=== PATIENT | female | born 1945 | race African-American/Black ===

== ENCOUNTER 2023-02-03 14:34 | Emergency (ER) | payer MEDICARE, SELFPAY ==
--- NOTE | ~2023-02-03 | US_ITS ---
EXAMINATION: US right upper quadrant DATE: 02/03/2023 18:18 INDICATION: Right upper quadrant abdominal pain. TECHNIQUE: Multiple grayscale and Doppler ultrasound images of the abdomen were obtained. COMPARISON: None FINDINGS: The visualized portions of the head, body, and tail of the pancreas are normal. The liver i s normal without focal lesion. There is normal flow in main portal vein. The gallbladder is absent. T he common duct is normal and measures 5 mm. There is mild atrophy of right kidney. IMPRESSION: 1. Mild atrophy of right kidney. Reviewed, dictated and finalized at location E.
--- NOTE | ~2023-02-03 | CT_ITS ---
EXAMINATION: CT abdomen pelvis w con DATE: 02/03/2023 18:48 INDICATION: Right upper quadrant abdominal pain. TECHNIQUE: Computed tomography (CT) of the abdomen and pelvis was performed with 100 mL Omnipaque 350 intravenous contrast. Automated exposure control and iterative reconstruction technique were employe d. The dose-length product was 695.80 mGy-cm. COMPARISON: None. FINDINGS: There is mild emphysema. There is mild atelectasis bilaterally. No pleural effusion. The he art size is normal. There are coronary artery calcifications. No pericardial effusion. The liver is n ormal. There are changes of cholecystectomy. The spleen, pancreas, and adrenal glands are normal. The re is moderate atrophy of right kidney. There is a 4 mm stone in right kidney. There is focal cortica l thinning of left kidney. There are no dilated loops of bowel. The appendix is normal. There is calc ified atherosclerosis of the aorta and many of the other arteries. There is moderate stenosis of righ t renal artery. There are no pathologically enlarged lymph nodes.. There is an umbilical hernia conta ining fat. There is no free intraperitoneal fluid. There is mild lumbar spondylosis. IMPRESSION: 1. Moderate atrophy of right kidney. 2. Moderate right renal artery stenosis. 3. Umbilical hernia containing fat. Reviewed, dictated and finalized at location E.
--- NOTE | ~2023-02-03 | XR_ITS ---
EXAMINATION: XR chest 1V portable DATE: 02/03/2023 18:22 INDICATION: Right upper quadrant abdominal pain. TECHNIQUE: A single frontal view of the chest was obtained. COMPARISON: None. FINDINGS: There is no pneumonia, pleural effusion, or pneumothorax. The heart size is normal. Surgica l clips in the right upper quadrant are likely from cholecystectomy. IMPRESSION: 1. No acute cardiopulmonary disease. Reviewed, dictated and finalized at location E.
[2023-02-03 14:44] VITALS: BP 141/50; PULSE 62; RESP 18; TEMP 36.2; O2SAT 99
[2023-02-03 15:06] LABS: Basophils Percent Auto 0.3 % (0.2-1.2); Eosinophils Absolute Auto 0.2 K/mm3 (0-0.3); Eosinophils Percent Auto 3.1 % (0-4.4); Hemoglobin 13.7 g/dL (12.0-15.0); Immature Granulocyte Absolute 0.01 K/mm3 (0.00-0.031); Immature Granulocyte Percent A 0.2 % (0-0.5); Lymphocytes Absolute Auto 1.89 K/mm3 (0.9-3.2); Lymphocytes Percent Auto 32.8 % (18.3-44.2); Mean Corpuscular HGB Conc 31.1 g/dl (32-36); Mean Corpuscular Hemoglobin 28.6 pg (26-34); Mean Corpuscular Volume 91.9 fl (80-100); Mean Platelet Volume 10.5 fl (7.4-10.4); Monocytes Absolute Auto 0.5 K/mm3 (0.1-0.6); Monocytes Percent Auto 9.4 % (2.6-8.5); Neutrophils Absolute Auto 3.1 K/mm3 (1.3-6.7); Neutrophils Percent Auto 54.2 % (45.5-73.1); Platelet Count Result 225 k/mm3 (150-375); Red Blood Count 4.79 M/mm3 (4.2-5.4); Red Cell Distribution Width 12.8 % (11.5-14.5); White Blood Count 5.8 K/mm3 (4.5-10.0)
[2023-02-03 15:19] LABS: Alanine Aminotransferase 30 U/L (6-35); Albumin Level 4.3 g/dL (3.5-5.1); Alkaline Phosphatase 64 U/L (38-126); Anion Gap 5 mmol/L (8-16); Aspartate Amino Transferase 46 U/L (14-36); Bilirubin,Total 0.5 mg/dL (0.2-1.3); Blood Urea Nitrogen 19 mg/dL (7-17); Calcium 9.2 mg/dL (8.4-10.2); Carbon Dioxide 31 mmol/L (22-30); Chloride 102 mmol/L (98-107); Estimated CRCL calculation 30 ml/min; Estimated Glomerular Filt Rate 38; Glucose 222 mg/dL (65-110); Lipase 537 U/L (23-300); Sodium 138 mmol/L (137-145)
[2023-02-03 16:54] VITALS: BP 165/61; PULSE 62; RESP 20; O2SAT 100
[2023-02-03 17:27] LABS: Add Urine Microscopic? YES; Appearance Urine Clear (Clear); Bacteria Urine None Seen /hpf; Bilirubin Urine Negative (Negative); Blood Urine Negative (Negative); Color Urine Yellow (Yellow); Glucose Urine UA 3+ mg/dL (Negative); Ketones Urine Negative (Negative); Leukocyte Esterase Ur 1+ LEU/UL (Negative); Need Manual Microscopic Reviewed; Nitrate Urine Negative (Negative); Protein Urine 1+ mg/dL (Negative); RBC Urine 0-2 /hpf (0-2); Specific Grav Ur 1.024 (1.001-1.035); Squamous Epithelial Cell Urine None seen /hpf (Few); Urobilinogen Urine 0.2 mg/dL (<2.0); pH Urine 5.5 (5.0-9.0)
--- NOTE | 2023-02-03 17:30 | ECG_ITS ---
Measurements Intervals [place] Rate: 62 P: 68 OR: 160 QRS: 40 QRSD: 89 T: 4 QT: 391 QTc: 399 Interpretive Statements SINUS RHYTHM BASELINE ARTIFACT NORMAL ECG NO PREVIOUS ECG AVAILABLE FOR COMPARISON Electronically Signed On 02-03-2023 18:40:33 CDT by Manfred Townsend M.D.
--- NOTE | 2023-02-03 17:31 | ED.ABDPAIN ---
HPI - Abdominal Pain General Chief Complaint: Abdominal Pain <Alma Fragoso PA-C - Last Filed: 02/03/23 19:50> Stated Complaint: abdominal pain <Alma Fragoso PA-C - Last Filed: 02/03/23 19:50> Time Seen by Provider: 02/03/23 16:53 <Alma Fragoso PA-C - Last Filed: 02/03/23 19:50> History of Present Illness HPI narrative: 77 y/o F with a history of CKD, hyperlipidemia, type 2 diabetes reports for evaluation for intermittent epigastric and right upper quadrant abdominal pain for the past 2 weeks. Patient states the abdominal pain occurs after she eats and resolves when she does not eat for long period of time. She states she has been constipated over the past few days. She did take some MiraLAX and was able to have a bowel movement this morning that was soft. Her last bowel movement prior to that was 4 days ago. She does states she has been very gassy. She has a history of cholecystectomy and pancreatitis from what sounds like a GLP-1 inhibitor around 5 years ago. She denies nausea, vomiting, fever, body aches or chills, chest pain or shortness of breath, melena or hematochezia, dysuria or hematuria. She was evaluated last night at [facility]'s emergency department. Unfortunately, they were unable to find a cause for her pain. She brought her CT abdomen pelvis results here which shows no acute process. <Alma Fragoso PA-C - Last Filed: 02/03/23 19:50> Related Data Home Medications: Home Medications Medication Instructions Recorded Confirmed atenolol 50 mg tablet 50 mg PO BID 11/06/22 02/02/23 cholecalciferol (vitamin D3) 125 125 mcg PO DAILY 11/06/22 02/02/23 mcg (5,000 unit) capsule lisinopril 20 mg tablet 20 mg PO DAILY 11/06/22 02/02/23 aspirin 81 mg tablet 81 mg PO DAILY 12/14/22 02/02/23 <Alma Fragoso PA-C - Last Filed: 02/03/23 19:50> Allergies/Adverse Reactions: Allergies Allergy/AdvReac Type Severity Reaction Status Date / Time No Known Allergies Allergy Verified 02/02/23 13:27 <Alma Fragoso PA-C - Last Filed: 02/03/23 19:50> Review of Systems Review of Systems: CONSTITUTIONAL: Denies fever, chills EYES: Denies visual changes, redness, or discharge. ENT: Denies rhinorrhea, congestion, sore throat, or otalgia. CARDIOVASCULAR: Denies chest pain, palpitations, or edema. RESPIRATORY: Denies cough or dyspnea. GASTROINTESTINAL: See HPI GENITOURINARY: Denies dysuria or hematuria. SKIN: Denies rash or itching. MUSCULOSKELETAL: Denies back pain, joint pain, or myalgia. NEUROLOGIC: Denies headache, numbness, dizziness, or weakness. PSYCHIATRIC: Denies anxiety or depression. <Alma Fragoso PA-C - Last Filed: 02/03/23 19:50> [facility] Family History Family History: Family History Sibling Hypertension Family history of diabetes mellitus in first degree relative Mother Cerebrovascular accident Family history of diabetes mellitus in first degree relative <Alma Fragoso PA-C - Last Filed: 02/03/23 19:50> Social History Social History: Social History Smoking packs per day: 0 Smoking cigarettes per day: 0.0 Years smoked: 0 Smoking pack-years: 0.00 Smoking status: Never smoker Second hand tobacco smoke exposure: No Alcohol intake: never Substance use: never Substance use type: does not use Lack of Transportation: No Lack of Food: Never True Current Housing: I Have Housing Concerned About Future Housing: No Difficulty Paying Gas/Electric Bills: No Difficulty Paying for Meds: No Currently Unemployed: No Education: High School Diploma/GED Difficulty w/ Childcare or Family Care: No Living arrangements: with family Spiritual care concerns: No <Alma Fragoso PA-C - Last Filed: 02/03/23 19:50> Exam Narrative: GENERAL: Well-appearing, in no acute distress.
[2023-02-03 18:04] LABS: Troponin I < 0.012 ng/mL (0.000-0.034)
[2023-02-03] MEDS: FAMOTIDINE 20 MG/2 ML VIAL IV PUSH (18:28)
[2023-02-03] MEDS: MORPHINE SULFATE (*CRX) 2 MG/ML INJ IV PUSH (18:28)
[2023-02-03] MEDS: SODIUM CHLORIDE 0.9% IV 1,000 ML 999 ML IV CONT (18:28)
[2023-02-03 20:58] VITALS: BP 170/59; PULSE 65; RESP 16; O2SAT 100
== END 2023-02-03 21:00 | disposition home or self-care (01) ==
PROVIDERS: Emergency Medicine; Emergency Provider Physician Assistant; PCP Family Medicine
DX: R10.11 Right upper quadrant pain (principal); R10.13 Epigastric pain; R74.8 Abnormal levels of other serum enzymes; R82.90 Unspecified abnormal findings in urine; N26.1 Atrophy of kidney (terminal); I70.1 Atherosclerosis of renal artery; E11.22 Type 2 diabetes mellitus with diabetic chronic kidney disease; N18.9 Chronic kidney disease, unspecified; Z90.49 Acquired absence of other specified parts of digestive tract
CPT/HCPCS: 36415; 71045; 74177; 76705; 80053; 81001; 83690; 84484; 85025; 87086; 87088; 87147; 93005; 96361; 96365; 96375; 99284; J0696; J2270; J7030; Q9967

== ENCOUNTER 2023-02-09 00:13 | Day surgery (SDC) | payer MEDICARE, SELFPAY ==
[2023-02-02 13:33] VITALS: BMI 29.6
[2023-02-09 09:16] VITALS: BP 148/50; PULSE 59; RESP 20; TEMP 35.9; O2SAT 100
--- NOTE | 2023-02-09 09:21 | PM.HPGS ---
History of Present Illness History of Present Illness Consent: Risks, benefits, and alternatives have been discussed and questions answered. Patient agrees to proceed with procedure. Chief complaint: + Cologuard Narrative: Ciera Sorto is a 77 year old female here for positive cologuard, had colonoscopy in the past more than 5 years ago Review of Systems Constitutional: Constitutional: Denies headache(s) and Denies weakness Eyes: Eyes: Denies blurry vision ENT: Reports Normal hearing present, Denies headache(s) and Denies neck pain Cardiovascular: Cardiovascular: Denies chest pain and Denies dyspnea Respiratory: Respiratory: Denies dyspnea Gastrointestinal: Gastrointestinal: Reports no additional gastrointestinal complaints Genitourinary: Genitourinary: Denies dysuria Musculoskeletal: Musculoskeletal: Denies neck pain Integumentary/Breasts: Skin/Breast: Denies dry skin Neurologic: Reports Normal hearing present, Denies headache(s) and Denies weakness Psychiatric: Psychiatric: Denies anxiety Endocrine: Endocrine: Denies change in body appearance Hematologic/Lymphatic: Hematologic/Lymphatic: Denies easy bleeding Allergic/Immunologic: Allergic/Immunologic: Denies urticaria [facility] Family History Family History Sibling Hypertension Family history of diabetes mellitus in first degree relative Mother Cerebrovascular accident Family history of diabetes mellitus in first degree relative Social History Social History Smoking packs per day: 0 Smoking cigarettes per day: 0.0 Years smoked: 0 Smoking pack-years: 0.00 Smoking status: Never smoker Second hand tobacco smoke exposure: No Alcohol intake: never Substance use: never Substance use type: does not use Lack of Transportation: No Lack of Food: Never True Current Housing: I Have Housing Concerned About Future Housing: No Difficulty Paying Gas/Electric Bills: No Difficulty Paying for Meds: No Currently Unemployed: No Education: High School Diploma/GED Difficulty w/ Childcare or Family Care: No Living arrangements: with family Spiritual care concerns: No Meds Home Medications and Allergies Home Medications Medication Instructions Recorded Confirmed Type atenolol 50 mg tablet 50 mg PO BID 11/06/22 02/02/23 History cholecalciferol (vitamin D3) 125 125 mcg PO DAILY 11/06/22 02/02/23 History mcg (5,000 unit) capsule lisinopril 20 mg tablet 20 mg PO DAILY 11/06/22 02/02/23 History blood-glucose meter #1 ea 11/24/22 02/02/23 Rx amlodipine 10 mg tablet 10 mg PO DAILY #90 tabs 11/25/22 02/02/23 Rx atorvastatin 20 mg tablet 20 mg PO DAILY #90 tabs 11/25/22 02/02/23 Rx blood sugar diagnostic (OneTouch #100 ea 11/25/22 02/02/23 Rx Ultra Test strips) glipizide 10 mg tablet 10 mg PO DAILY #90 tabs 11/25/22 02/02/23 Rx insulin glargine 100 unit/mL (3 40 unit (0.4 mL) subcut DAILY #15 11/25/22 02/02/23 Rx mL) subcutaneous pen (Lantus mL Solostar U-100 Insulin) lancets (Soft Touch Lancets) #200 ea 11/25/22 02/02/23 Rx aspirin 81 mg tablet 81 mg PO DAILY 12/14/22 02/02/23 History tirzepatide 2.5 mg/0.5 mL 2.5 mg (0.5 mL) subcut WEEKLY 4 01/20/23 02/02/23 Rx subcutaneous pen injector weeks #2 mL (Jarret) semaglutide 0.25 mg or 0.5 mg (2 0.25 mg (0.368 mL) subcut WEEKLY 01/21/23 02/02/23 Rx mg/3 mL) subcutaneous pen injector #3 mL (Ozempmeli) cephalexin 500 mg capsule 500 mg PO Q8H 7 days #21 caps 02/03/23 Rx famotidine 20 mg tablet 20 mg PO DAILY #20 tabs 02/03/23 Rx Allergies Allergy/AdvReac Type Severity Reaction Status Date / Time No Known Allergies Allergy Verified 02/02/23 13:27 Vital Signs Vital Signs - 24 hr 02/09/23 09:16 Temperature 96.6 F L Pulse Rate 59 L Respiratory Rate 20 Blood Pressure 148/50 H Pulse Oximetry 100 Oxygen Delivery Room Air Exam
--- NOTE | 2023-02-09 09:24 | WPDANESEPPF ---
Anes - Initial Pre Proc Eval Procedure: Operation Date: 02/09/23 10:30 Proposed Procedures p Colonoscopy - Ulises Beltran MD Date/Time: 02/09/23 09:24 Surgeon: Ulises Beltran MD Pre Op Diagnosis: + Cologuard Patient Data Age: 77 Gender: F Height: 1.68 m Weight: 79.8 kg Last Vital Signs Temp 96.6 F L 02/09/23 09:16 Pulse 59 L 02/09/23 09:16 Resp 20 02/09/23 09:16 BP 148/50 H 02/09/23 09:16 Pulse Ox 100 02/09/23 09:16 O2 Del Method Room Air 02/09/23 09:16 Allergies Allergy/AdvReac Type Severity Reaction Status Date / Time No Known Allergies Allergy Verified 02/02/23 13:27 Home Medications Medication Instructions Recorded Confirmed Type atenolol 50 mg tablet 50 mg PO BID 11/06/22 02/02/23 History cholecalciferol (vitamin D3) 125 125 mcg PO DAILY 11/06/22 02/02/23 History mcg (5,000 unit) capsule lisinopril 20 mg tablet 20 mg PO DAILY 11/06/22 02/02/23 History blood-glucose meter #1 ea 11/24/22 02/02/23 Rx amlodipine 10 mg tablet 10 mg PO DAILY #90 tabs 11/25/22 02/02/23 Rx atorvastatin 20 mg tablet 20 mg PO DAILY #90 tabs 11/25/22 02/02/23 Rx blood sugar diagnostic (OneTouch #100 ea 11/25/22 02/02/23 Rx Ultra Test strips) glipizide 10 mg tablet 10 mg PO DAILY #90 tabs 11/25/22 02/02/23 Rx insulin glargine 100 unit/mL (3 40 unit (0.4 mL) subcut DAILY #15 11/25/22 02/02/23 Rx mL) subcutaneous pen (Lantus mL Solostar U-100 Insulin) lancets (Soft Touch Lancets) #200 ea 11/25/22 02/02/23 Rx aspirin 81 mg tablet 81 mg PO DAILY 12/14/22 02/02/23 History tirzepatide 2.5 mg/0.5 mL 2.5 mg (0.5 mL) subcut WEEKLY 4 01/20/23 02/02/23 Rx subcutaneous pen injector weeks #2 mL (Mounjaro) semaglutide 0.25 mg or 0.5 mg (2 0.25 mg (0.368 mL) subcut WEEKLY 01/21/23 02/02/23 Rx mg/3 mL) subcutaneous pen injector #3 mL (Ozempic) cephalexin 500 mg capsule 500 mg PO Q8H 7 days #21 caps 02/03/23 Rx famotidine 20 mg tablet 20 mg PO DAILY #20 tabs 02/03/23 Rx Patient hx anesthesia problems: none Family hx anesthesia problems: none Results Review: All pre-operative results and documents have been reviewed as part of the pre-operative evaluation. [facility] Family History Family History Sibling Hypertension Family history of diabetes mellitus in first degree relative Mother Cerebrovascular accident Family history of diabetes mellitus in first degree relative Social History Social History Smoking packs per day: 0 Smoking cigarettes per day: 0.0 Years smoked: 0 Smoking pack-years: 0.00 Smoking status: Never smoker Second hand tobacco smoke exposure: No Alcohol intake: never Substance use: never Substance use type: does not use Lack of Transportation: No Lack of Food: Never True Current Housing: I Have Housing Concerned About Future Housing: No Difficulty Paying Gas/Electric Bills: No Difficulty Paying for Meds: No Currently Unemployed: No Education: High School Diploma/GED Difficulty w/ Childcare or Family Care: No Living arrangements: with family Spiritual care concerns: No Anes - Eval Final PreProcedure Day of Procedure 02/09/23 09:24 Patient weight: normal Heart: regular rate and rhythm Lungs: clear to auscultation Airway: Mallampati scale class II Neurological: alert and oriented Last oral intake: >/= 8 hours ASA classification: III Emergent: no Anesthetic plan: proceed Anesthesia type and monitoring: general GIVS and standard monitoring Results Review: All pre-operative results and documents have been reviewed as part of the pre-operative evaluation. Informed Consent: The patient's anesthetic plan and its attendant risks and benefits were discussed with the patient/family/POA. Questions were solicited and answers provided to the satisfaction of the patient/family/POA.
[2023-02-09] MEDS: LACTATED RINGERS 1,000 ML 150 ML IV CONT (09:30)
[2023-02-09 09:36] LABS: Glucose Point of Care 180 mg/dl (65-105)
[2023-02-09 09:58] VITALS: BP 135/54; PULSE 56; RESP 18; O2SAT 100
[2023-02-09 10:08] VITALS: BP 138/68; PULSE 57; RESP 21; O2SAT 100
[2023-02-09 10:18] VITALS: BP 139/62; PULSE 54; RESP 22; O2SAT 100
[2023-02-09 10:18] LABS: Glucose Point of Care 168 mg/dl (65-105)
== END 2023-02-09 10:28 | disposition home or self-care (01) ==
PROVIDERS: PCP Family Medicine; Visit Provider Internal Medicine Gastroenterology
PROC: 0DJD8ZZ Inspection of Lower Intestinal Tract, Via Natural or Artificial Opening Endoscopic (ICD-10-PCS; CPT 45378; principal; 2023-02-09 10:30)
DX: R19.5 Other fecal abnormalities (principal); D12.4 Benign neoplasm of descending colon; D12.5 Benign neoplasm of sigmoid colon; D12.8 Benign neoplasm of rectum; K63.5 Polyp of colon; K64.8 Other hemorrhoids; Z79.84 Long term (current) use of oral hypoglycemic drugs; Z79.4 Long term (current) use of insulin; Z79.82 Long term (current) use of aspirin; Z79.85 Long-term (current) use of injectable non-insulin antidiabetic drugs
CPT/HCPCS: 45385; 82948; 88305; J2704; J7120

== ENCOUNTER 2023-03-15 10:55 | Outpatient (CLI) | payer MEDICARE, SELFPAY ==
--- NOTE | ~2023-03-15 | US_ITS ---
US renal BI 03/15/2023 11:32 Procedure: Realtime transabdominal ultrasound of the kidneys and bladder. Indication: Chronic kidney disease. Comparison: No prior studies for comparison. Findings: Renal echotexture is normal bilaterally without hydronephrosis, contour deforming mass or r enal calculus. The right kidney measures 7.4 cm and left kidney measures 10.7 cm. Bladder within nor mal limits. Impression: 1: Right renal atrophy. Reviewed, dictated and finalized at location B. [employer] Impression: 1: Right renal atrophy.
== END 2023-03-15 10:56 | disposition home or self-care (01) ==
PROVIDERS: PCP Family Medicine; Visit Provider Internal Medicine Nephrology
DX: N39.0 Urinary tract infection, site not specified (principal); N18.32 Chronic kidney disease, stage 3b; N26.1 Atrophy of kidney (terminal)
CPT/HCPCS: 76775

== ENCOUNTER 2023-11-11 12:00 | Outpatient (CLI) | payer MEDICARE, SELFPAY ==
[2023-11-11 12:54] LABS: Strep Group A RT-PCR NOT DETECTED (Negative)
[2023-11-11 13:06] LABS: Influenza A QL RT-PCR Negative (Negative); Influenza B QL RT-PCR Negative (Negative); RSV RNA, RT-PCR Negative (Negative); SARS-CoV-2 RNA PCR Negative (Negative)
== END 2023-11-11 12:01 | disposition home or self-care (01) ==
LOC: ANHLAB 12:02
PROVIDERS: PCP Family Medicine; Visit Provider Nurse Practitioner Family
DX: J02.9 Acute pharyngitis, unspecified (principal); Z20.822 Contact with and (suspected) exposure to COVID-19
CPT/HCPCS: 87637; 87651

== ENCOUNTER 2023-11-14 12:42 | Emergency (ER) | payer MEDICARE, SELFPAY ==
[2023-11-14 12:59] VITALS: BP 135/60; PULSE 69; RESP 16; TEMP 36.6; O2SAT 99
--- NOTE | 2023-11-14 13:27 | ED.EAR ---
HPI - Ear Problem General Chief complaint: Ear Stated complaint: both ears painful Time Seen by Provider: 11/14/23 13:13 Source: patient, family (daughter) and RN notes reviewed Mode of arrival: ambulatory Limitations: no limitations History of Present Illness HPI Narrative: Patient presents today complaining of persistent left ear pain and cough. Patient was started on ofloxacin ear drops last week and finished them 2 days ago and continues to have some persistent pain. Patient saw her PCP 3 days ago and was started on some Augmentin for cough. At that time there were some viral tests and a chest x-ray done. Review of the chart shows the viral test were all negative. Patient states a phone call was placed to her PCPs office because she did not feel that the Augmentin was affective. Review of the chart shows azithromycin was subsequently called in, but patient states she was not aware of this and has not picked it up at the pharmacy. She would like her ears exam and to ensure the infection has completely resolved. Patient states she did take a dose of Augmentin this morning. Related Data Home Medications Medication Instructions Recorded Confirmed cholecalciferol (vitamin D3) 125 125 mcg PO DAILY 11/06/22 11/14/23 mcg (5,000 unit) capsule aspirin 81 mg tablet 81 mg PO DAILY 12/14/22 11/14/23 ofloxacin 0.3 % ear drops See Rx Instructions .Route .COMPLEX 11/14/23 11/14/23 Allergies Allergy/AdvReac Type Severity Reaction Status Date / Time No Known Allergies Allergy Verified 11/14/23 12:46 Review of Systems Review of Systems: CONSTITUTIONAL: Denies body aches, fever, chills, or sweats. EYES: Denies visual changes, redness, or discharge. ENT: Denies rhinorrhea, congestion, sore throat. + bilateral ear pain CARDIOVASCULAR: Denies chest pain, palpitations, or edema. RESPIRATORY: + cough GASTROINTESTINAL: Denies abdominal pain, nausea, vomiting, or diarrhea. GENITOURINARY: Denies dysuria or hematuria. SKIN: Denies rash, itching, or wounds. MUSCULOSKELETAL: Denies back pain, joint pain, or myalgia. NEUROLOGIC: Denies headache, numbness, tingling, or weakness. PSYCH: Denies depression or anxiety. [facility] Family History Family History Sibling Hypertension Family history of diabetes mellitus in first degree relative Cerebrovascular accident Mother Cerebrovascular accident Family history of diabetes mellitus in first degree relative Father Alcoholism Social History Social History Smoking packs per day: 0 Smoking cigarettes per day: 0.0 Years smoked: 0 Smoking pack-years: 0.00 Smoking status: Never smoker Second hand tobacco smoke exposure: No Alcohol intake: never Substance use: never Substance use type: does not use Do You Feel Safe in your Home?: Yes Lack of Transportation: No Lack of Food: Never True Current Housing: I Have Housing Concerned About Future Housing: No Difficulty Paying Gas/Electric Bills: No Difficulty Paying for Meds: No Currently Unemployed: No Education: High School Diploma/GED Difficulty w/ Childcare or Family Care: No Living arrangements: with family Occupation/Education: retired Gender identity (if verbalized by the patient): Male Spiritual care concerns: No Comments At time of signature, I have reviewed and agree with nursing past medical, surgical, social and family history unless otherwise noted. Please see nursing chart for further information. There is no relevant family history pertinent to the presenting complaint Exam Narrative: GENERAL: Well-appearing, well-nourished, and in no acute distress. HEAD: Normocephalic, atraumatic. EYES: EOMI. No redness or drainage. Conjunctivae normal. ENT: Mucous membranes pink and moist. Nares clear. No rhinorrhea. TMs normal bilaterally. Throat normal. Uvula mid
== END 2023-11-14 13:38 | disposition home or self-care (01) ==
PROVIDERS: Emergency Provider Nurse Practitioner; PCP Family Medicine
DX: R05.9 Cough, unspecified (principal); Z79.82 Long term (current) use of aspirin; E78.00 Pure hypercholesterolemia, unspecified; I10 Essential (primary) hypertension; Z86.16 Personal history of COVID-19
CPT/HCPCS: 99211; G0463

== ENCOUNTER 2024-05-19 10:34 | Emergency (ER) | payer MEDICARE, SELFPAY ==
[2024-05-19 10:50] VITALS: BP 134/50; PULSE 69; RESP 20; O2SAT 100
--- NOTE | 2024-05-19 10:52 | ED.GENADULT ---
HPI - General Adult General Chief complaint: Environmental Exposure Stated complaint: Inhaled Chemicals Time Seen by Provider: 05/19/24 11:05 Source: patient and RN notes reviewed Mode of arrival: ambulatory Limitations: no limitations History of Present Illness HPI narrative: 79-year-old female presents with concern for cough. She reports 2 days ago she was cleaning with oven metal tube cutter for about a half an hour. Reports afterwards she started coughing in her cough has continued for the couple of days. She reports she used her daughter's nebulizer twice. She reports yesterday she felt very fatigued and general weakness and had an episode of incontinence. She reports those symptoms are gone today. She denies fever. Related Data Home Medications ?Medication ?Instructions ?Recorded ?Confirmed ?Last Taken ?Type cholecalciferol (vitamin D3) 125 125 mcg PO DAILY 11/06/22 04/06/24 02/08/23 History mcg (5,000 unit) capsule aspirin 81 mg tablet 81 mg PO DAILY 12/14/22 04/06/24 02/08/23 History Allergies Allergy/AdvReac Type Severity Reaction Status Date / Time azithromycin Allergy Mild Itching Verified 05/19/24 10:37 Review of Systems Review of Systems: CONSTITUTIONAL: Denies malaise, chills, sweats, or fever. Reports generalized weakness and fatigue yesterday EYES: Denies visual changes, redness, or discharge. ENT: Reports rhinorrhea, congestion. Denies sinus pain, otalgia and sore throat. CARDIOVASCULAR: Denies chest pain, palpitations, or edema. RESPIRATORY: Reports cough. Denies dyspnea. GASTROINTESTINAL: Denies abdominal pain, nausea, vomiting, diarrhea SKIN: Denies rash or itching. MUSCULOSKELETAL: Denies myalgia. NEUROLOGIC: Denies headache. All systems reviewed & are unremarkable except as noted in HPI and below [facility] Family History Family History Sibling Hypertension Family history of diabetes mellitus in first degree relative Cerebrovascular accident Mother Cerebrovascular accident Family history of diabetes mellitus in first degree relative Father Alcoholism Social History Social History Smoking packs per day: 0 Smoking cigarettes per day: 0.0 Years smoked: 0 Smoking pack-years: 0.00 Smoking status: Never smoker Second hand tobacco smoke exposure: No Alcohol intake: never Substance use: never Substance use type: does not use Do You Feel Safe in your Home?: Yes Lack of Transportation: No Lack of Food: Never True Current Housing: I Have Housing Concerned About Future Housing: No Difficulty Paying Gas/Electric Bills: No Difficulty Paying for Meds: No Currently Unemployed: No Education: High School Diploma/GED Difficulty w/ Childcare or Family Care: No Living arrangements: with family Occupation/Education: retired Gender identity (if verbalized by the patient): Male Spiritual care concerns: No Comments At time of signature, agree with nursing past medical, surgical, social and family history. There is no relevant family history pertinent to the presenting complaint Exam Narrative: GENERAL: Nontoxic-appearing, well-nourished, and in no acute distress. HEAD: Normocephalic EYES: PERRLA, conjunctivae clear ENT: Nares clear. Mucous membranes moist. TM pearly jesus with sharp light reflex bilaterally; no tragal tenderness. Oropharynx not erythematous without lesions. Tonsils not enlarged and without exudate, no drooling, no hoarseness, no trismus, uvula midline. NECK: Supple. No lymphadenopathy CHEST: Aeration poor throughout. No wheezing, rhonchi, rales, or stridor. No respiratory distress, speaks in full sentences. HEART: Regular rate and rhythm. No murmur heard. SKIN: Warm, dry, no rash. NEURO: Alert and oriented x3. PSYCH: Normal mood and affect Course Course Emergency Course: My advice patient given her age, general weakness symptoms yesterday she should seek further evaluation in the emergency room. She and her daughter are declining transfer to emergency room, her daughter says she will take her mother to the emergency room if her symptoms worsen or do not improve with treatment.. Anticipatory guidance given. Patient agrees to follow-up as directed and is aware of reasons to seek care at the emergency department. Portions of this record may have been created with voice recognition software Level of Care: [facility] Visit Reevaluation(s) Reevaluation #1: Lung sounds improved after DuoNeb, aeration improved, lung sounds equal and clear Date: 05/19/24 Time: 11:28 Vital Signs Vital signs: Reviewed. Medical Decision Making MDM Narrative Medical decision making narrative: I evaluated this patient in the the medical center. History is obtained from patient who is an independent historian and physical exam was performed.? Available medical records were reviewed. ? Exam findings show no acute concerns or changes; patient is non-toxic appearing and is in no distress. ? Differential diagnosis and treatment plan were discussed with the patient. Patient agrees with discussion and after shared medical decision making agrees with plan of care. All questions were answered to the patient's satisfaction. Critical Care Time Critical Care Time Critical Care Time: No Discharge Plan Discharge Clinical Impression: Lower respiratory tract infection Patient Disposition: Home, Self-Care Condition: Stable Instructions: Antibiotic Form, How to Use a Nebulizer (ED) Additional Instructions: 1) Please follow-up with your primary care doctor in the next 1-2 days. 2) If you have any worsening of symptoms or any other urgent concerns please go to the ER. 3) Please take medications as prescribed and continue taking your home medications as usual. 4) Please read and follow information included in discharge instructions. Patient Language: Romansh Prescriptions: New albuterol sulfate 2.5 mg /3 mL (0.083 %) solution for nebulization 2.5 mg inhalation Q4H PRN (Reason: shortness of breath or wheezing) Qty: 75 0RF doxycycline monohydrate 100 mg tablet 100 mg PO BID 7 Days Qty: 14 0RF methylprednisolone [Medrol ([place])] 4 mg tablets,dose pack See Rx Instructions .ROUTE .COMPLEX Qty: 21 0RF Rx Instructions: orally per package directions albuterol sulfate 90 mcg/actuation HFA aerosol inhaler 2 puff INHALATION QID PRN (Reason: shortness of breath or wheezing) Qty: 8.5 0RF No Action cholecalciferol (vitamin D3) 125 mcg (5,000 unit) capsule 125 mcg PO DAILY hydroxyzine HCl 50 mg tablet 50 mg PO TID PRN (Reason: itching) Qty: 60 0RF fluticasone propionate [Flonase Allergy Relief] 50 mcg/actuation spray,suspension 2 spray intranasal DAILY Qty: 16 0RF Rx Instructions: administer into each nostril polyethylene glycol 3350 [Miralax] 17 gram/dose powder 17 g PO DAILY PRN (Reason: constipation) Qty: 510 3RF (DME) blood-glucose meter Misc See Rx Instructions .Route Qty: 1 0RF Rx Instructions: As directed (DME) lancets [Soft Touch Lancets] Misc See Rx Instructions .Route Qty: 200 1RF Rx Instructions: to check blood sugar 1xday insulin glargine [Lantus Solostar U-100 Insulin] 100 unit/mL (3 mL) insulin pen 40 unit subcut DAILY Qty: 45 1RF (DME) pen needle, diabetic [BD Ultra-Fine Micro Pen Needle] 32 gauge x 1/4 needle See Rx Instructions .Route Qty: 100 0RF Rx Instructions: inject insulin once daily As directed amlodipine 10 mg tablet 10 mg PO DAILY Qty: 90 1RF glipizide 10 mg tablet See Rx Instructions .ROUTE .COMPLEX Qty: 90 0RF Dose Instruction: TAKE 1 TABLET BY MOUTH DAILY Rx Instructions: TAKE 1 TABLET BY MOUTH DAILY Trulicity 0.75 mg/0.5 mL pen injector 0.75 mg subcut WEEKLY Qty: 4 2RF lisinopril 20 mg tablet See Rx Instructions .ROUTE .COMPLEX Qty: 90 0RF Dose Instruction: TAKE 1 TABLET BY MOUTH DAILY Rx Instructions: TAKE 1 TABLET BY MOUTH DAILY atenolol 50 mg tablet See Rx Instructions .ROUTE .COMPLEX Qty: 180 0RF Dose Instruction: TAKE 1 TABLET BY MOUTH TWICE DAILY Rx Instructions: TAKE 1 TABLET BY MOUTH TWICE DAILY (DME) OneTouch Ultra Test Strip See Rx Instructions .ROUTE .COMPLEX Qty: 100 0RF Dose Instruction: USE TO TEST BLOOD GLUCOSE EVERY DAY Rx Instructions: USE TO TEST BLOOD GLUCOSE EVERY DAY (DME) FreeStyle Elzbieta 3 Plus Sensor Device See Rx Instructions .Route Qty: 2 3RF Rx Instructions: Check glucose continuously As directed atorvastatin 20 mg tablet See Rx Instructions .ROUTE .COMPLEX Qty: 90 0RF Dose Instruction: TAKE 1 TABLET BY MOUTH DAILY Rx Instructions: TAKE 1 TABLET BY MOUTH DAILY Adult Low Dose Aspirin 81 mg Tablet 81 mg PO DAILY Follow-up/Referrals: Tariq Mcgill MD [Primary Care Provider] - Time of Disposition: 11:37
[2024-05-19] MEDS: IPRATROPIUM 0.5 MG/ALBUTEROL SULFATE 2.5 MG AMPUL.NEB 3 ML INHALATION (11:10)
== END 2024-05-19 11:45 | disposition home or self-care (01) ==
PROVIDERS: Emergency Provider Nurse Practitioner; PCP Family Medicine
DX: J22 Unspecified acute lower respiratory infection (principal); Z79.82 Long term (current) use of aspirin; I10 Essential (primary) hypertension; E78.00 Pure hypercholesterolemia, unspecified; E11.9 Type 2 diabetes mellitus without complications; Z79.4 Long term (current) use of insulin; Z79.84 Long term (current) use of oral hypoglycemic drugs; Z86.16 Personal history of COVID-19
CPT/HCPCS: 94640; 99213; G0463

== ENCOUNTER 2024-05-23 11:39 | Outpatient (CLI) | payer MEDICARE, SELFPAY ==
--- NOTE | ~2024-05-23 | XR_ITS ---
EXAMINATION: XR chest 2V 05/23/2024 12:05 INDICATION: Acute upper respiratory infection PROCEDURE: 2 view chest COMPARISON: 02/03/2023 FINDINGS: The lungs are clear. The cardiomediastinal silhouette is within normal limits. There are no pleural effusions. There is no pneumothorax suspected. IMPRESSION: 1: NO ACUTE CARDIOPULMONARY DISEASE. Reviewed, dictated and finalized at location [facility] [employer] [facility] [employer]
== END 2024-05-23 11:40 | disposition home or self-care (01) ==
LOC: MICIMG 11:42
PROVIDERS: PCP Family Medicine; Visit Provider Family Medicine
DX: J06.9 Acute upper respiratory infection, unspecified (principal)
CPT/HCPCS: 71046